=== PATIENT | female | born 1950 ===

== ENCOUNTER → 2016-11-08 | Outpatient (CLI) | payer OTHER, MEDICARE | END | disposition home or self-care (01) | LOC: C.PAPS 15:01 | PROVIDERS: ATTEND Obstetrics & Gynecology | DX: Z12.4 Encounter for screening for malignant neoplasm of cervix (principal) ==

== ENCOUNTER → 2016-12-05 | Outpatient (CLI) | payer OTHER, MEDICARE ==
--- NOTE | 2016-12-05 12:21 | DIAGNOSTIC IMAGING REPORT ---
LEFT ANKLE MRI WITH AND WITHOUT INTRAVENOUS CONTRAST HISTORY: Left distal tibial pain and swelling. TECHNIQUE: Multiplanar multisequence MRI of the left ankle was performed both before and after the intravenous administration of contrast. COMPARISON STUDY: None. FINDINGS: No fracture or dislocation within the left ankle. No evidence for osteomyelitis. Mild cartilage space narrowing at the tibiotalar joint with tiny subchondral cystic change at the medial talar dome. This favors mild degenerative change. There is thinning of the anterior talofibular ligament consistent with an old chronic tear. Otherwise, the remaining medial and lateral stabilizing ligaments are intact. The Achilles, flexor, extensor, and peroneal tendons are normal in course, caliber, and signal intensity. There is a skin marker overlying the distal anterior tibia. There is mild subcutaneous edema and enhancement within the anteromedial aspect of the lower leg/ankle. This is consistent with a mild cellulitis. There is no loculated fluid collections to suggest an abscess. No deep soft tissue enhancement identified. The plantar fascia is intact. Small plantar heel spur. 1.4 cm focus of fluid lateral to the talonavicular joint. This favors a ganglion cyst. IMPRESSION: 1. Mild edema and mild enhancement within the subcutaneous soft tissues at the anteromedial aspect of the lower leg/ankle. This favors a mild cellulitis. No loculated fluid collections to suggest an abscess. 2. A 1.4 cm focal area of fluid lateral to the talonavicular joint which favors a ganglion cyst. 3. Additional chronic changes as described above. Electronically signed by: Scott Franco M.D. 12/05/2016 12:19 PM Dictated Date/Time: 12/05/2016 12:13 PM
== END | disposition home or self-care (01) ==
LOC: C.MRIBC 10:13
PROVIDERS: ATTEND Internal Medicine
DX: M89.8X6 Other specified disorders of bone, lower leg (principal)